=== PATIENT | female | born 1980 | race African-American/Black ===

== ENCOUNTER 2017-04-11 18:47 | Emergency (ER) | payer OTHER ==
[~2017-04-11] VITALS: Ht 167.6 cm; Wt 63.5 kg
[~2017-04-11 18:47] MED LIST: IBUPROFEN 800800 M1 PO; NEURONTIN600 MG PO; ULTRAM 50MG TAB50 MG PO
[2017-04-11 19:22] LABS: URINE BILIRUBIN NEGATIVE (Negative); URINE BLOOD TRACE (Negative); URINE CLARITY SL CLOUDY; URINE COLOR YELLOW; URINE GLUCOSE-RANDOM* NEGATIVE (Negative); URINE KETONES NEGATIVE (Negative); URINE LEUKOCYTES-REFLEX NEGATIVE (Negative); URINE NITRITE-REFLEX NEGATIVE (Negative); URINE PROTEIN (DIPSTICK) NEGATIVE (Negative); URINE SPECIFIC GRAVITY 1.015 (1.005-1.035); URINE UROBILINOGEN 0.2 E.U./dl (0.2-1.0)
[2017-04-11 20:30] LABS: ABSOLUTE NEUTROPHILS 3.2 thou/uL (1.4-8.2); BASOPHILS 1.4 % (0.0-2.0); EOSINOPHILS 3.2 % (0.0-3.0); HEMATOCRIT 36.5 % (37.0-47.0); HEMOGLOBIN 12.4 gm/dL (12.0-15.0); LYMPHOCYTES 48.2 % (24.0-44.0); MCH 31.3 pg (26.0-34.0); MCHC 33.9 g/dL (28.0-37.0); MCV 92.5 fL (80.0-100.0); MONOCYTES 6.8 % (1.0-8.0); PLATELET COUNT 252 thou/uL (150-400); POLYS 40.4 % (36.0-66.0); RBC 3.95 mil/uL (4.20-5.00); RDW 12.8 % (10.5-14.5); WBC 7.9 thou/uL (4.0-11.0)
[2017-04-11 20:38] LABS: CALCIUM 9.1 mg/dL (8.5-10.1); CREATININE 0.7 mg/dL (0.6-1.0); POTASSIUM 3.2 mmol/L (3.5-5.1)
[2017-04-11 20:41] LABS: ALBUMIN 4.3 g/dL (3.4-5.0); TOTAL BILIRUBIN 0.4 mg/dL (<0.1-1.0); TOTAL PROTEIN 7.2 g/dL (6.4-8.2)
[2017-04-11] MEDS ORDERED: LIORESAL 10 MG10 MG PO (21:07)
[2017-04-11] MEDS ORDERED: HYDROCODONE-AP1 EAC6 PO (21:07)
== END 2017-04-11 21:29 | disposition home or self-care (01) ==
LOC: ER 18:47
PROVIDERS: Emergency Medicine
DX: S39.012A Strain of muscle, fascia and tendon of lower back, initial encounter (principal); R10.30 Lower abdominal pain, unspecified; F17.210 Nicotine dependence, cigarettes, uncomplicated; Z90.710 Acquired absence of both cervix and uterus; Z88.8 Allergy status to other drugs, medicaments and biological substances; X58.XXXA Exposure to other specified factors, initial encounter; Y93.89 Activity, other specified; Y92.89 Other specified places as the place of occurrence of the external cause; Y99.8 Other external cause status